=== PATIENT | male | born 1995 | race Two or more races ===

== ENCOUNTER 2020-07-19 15:38 | Emergency (ER) | payer OTHER ==
[~2020-07-19] VITALS: Ht 170.2 cm; Wt 77.1 kg
[2020-07-19 15:52] VITALS: BP 128/94
[2020-07-19] MEDS ORDERED: TETANUS-DIPTH-ACEL PERTUSSIS 0.5ML SYR Tdap IM ONE (16:30)
[2020-07-19] MEDS ORDERED: cefTRIAXone SOD 1,000 MG VL IM ONE (16:45)
[2020-07-19] MEDS ORDERED: IBUPROFEN 800 MG TAB PO ONE (16:45)
== END 2020-07-19 17:14 | disposition home or self-care (01) ==
LOC: ER 15:38
DX: S62.632B Displaced fracture of distal phalanx of right middle finger, initial encounter for open fracture (principal); W23.0XXA Caught, crushed, jammed, or pinched between moving objects, initial encounter; Y93.89 Activity, other specified; Y92.89 Other specified places as the place of occurrence of the external cause; Y99.8 Other external cause status
CPT/HCPCS: 29130; 73140; 90471; 90715; 96372; 99284; J0696

== ENCOUNTER 2021-08-19 23:34 | Emergency (ER) | payer MEDICAID, OTHER ==
[~2021-08-19] VITALS: Ht 170.2 cm; Wt 75.7 kg
[2021-08-20 00:30] VITALS: BP 135/90
== END 2021-08-20 01:07 | disposition home or self-care (01) ==
LOC: ER 23:34
DX: U07.1 COVID-19 (principal); J12.82 Pneumonia due to coronavirus disease 2019; M94.0 Chondrocostal junction syndrome [Tietze]; R53.83 Other fatigue
CPT/HCPCS: 71045

== ENCOUNTER 2022-03-23 17:38 | Emergency (ER) | payer MEDICAID ==
[~2022-03-23] VITALS: Ht 170.2 cm; Wt 75.7 kg
[2022-03-23] MEDS ORDERED: cefTRIAXone SOD 1,000 MG VL IM ONE (20:45)
[2022-03-23] MEDS ORDERED: DOXYCYCLINE 100 MG TAB/CAP PO ONE (20:45)
[2022-03-23] MEDS ORDERED: DOXY-332 PO (21:07)
[2022-03-23 21:12] LABS: Urine Bacteria NONE SEEN /hpf (None Seen); Urine Blood Negative /uL (Negative); Urine Mucus FEW (None Seen); Urine Specific Gravity 1.023 (1.001-1.035); Urine WBC 1 /hpf (0 - 3)
[2022-03-23 21:47] VITALS: BP 142/96
== END 2022-03-23 22:49 | disposition home or self-care (01) ==
LOC: ER 17:38
DX: N48.89 Other specified disorders of penis (principal)
CPT/HCPCS: 81001; 99283; J0696